=== PATIENT | male | born 1955 | race Caucasian/White ===

== ENCOUNTER 2017-09-20 12:15 | Emergency (ER) | payer MEDICAID | END 2017-09-20 14:38 | disposition home or self-care (01) | LOC: D.ER 12:15 | DX: M79.622 Pain in left upper arm (principal); S49.92XA Unspecified injury of left shoulder and upper arm, initial encounter; X58.XXXA Exposure to other specified factors, initial encounter; Y93.89 Activity, other specified; Y92.029 Unspecified place in mobile home as the place of occurrence of the external cause; Z85.89 Personal history of malignant neoplasm of other organs and systems ==

== ENCOUNTER 2018-03-25 11:53 | Emergency (ER) | payer MEDICAID | END 2018-03-25 16:10 | disposition home or self-care (01) | LOC: D.ER 11:53 | DX: S16.1XXA Strain of muscle, fascia and tendon at neck level, initial encounter (principal); V53.6XXA Passenger in pick-up truck or van injured in collision with car, pick-up truck or van in traffic accident, initial encounter; Y93.89 Activity, other specified; Y92.410 Unspecified street and highway as the place of occurrence of the external cause; S00.83XA Contusion of other part of head, initial encounter; S01.112A Laceration without foreign body of left eyelid and periocular area, initial encounter; M62.838 Other muscle spasm; Z85.01 Personal history of malignant neoplasm of esophagus ==